=== PATIENT | female | born 1960 | race Caucasian/White ===

== ENCOUNTER 2016-07-03 11:06 | Emergency (ER) | payer MEDICARE, OTHER ==
[~2016-07-03] VITALS: Wt 46.0 kg
[~2016-07-03 11:06] MED LIST: ALBU8.5H3 INH; ARIP10TA13 PO; ASPI81TA3 PO; DIVA500T33 PO; DOCU-144 PO; ESOM20CA PO; FENT-23 TD; FLUT1DIS23; HYDR-762 PO; HYDR20TA PO; HYDR5TAB PO; LAMO150T PO; LOPE1LIQ69 PO; LORA-444 PO; ONDA4TAB8 PO; QUET200T PO; TOLT2CAP6 PO; ZOLP10TA
[2016-07-03] MEDS ORDERED: ONDANSETRON 4 MG INJ IV STA (11:48)
[2016-07-03] MEDS ORDERED: morphine 2 MG INJ IV STA (11:48)
[2016-07-03] MEDS ORDERED: SOD CHLORIDE 0.9% 1,000 ML IV STA (11:50)
[2016-07-03 11:52] LABS: ADD SCAN DIFF NO
[2016-07-03 12:12] LABS: ALBUMIN 3.7 g/dl (3.3-4.9); ALBUMIN/GLOBULIN RATIO 1.08; CALCIUM 9.1 mg/dl (8.4-10.2); CREATININE 0.52 mg/dl (0.44-1.00); POTASSIUM 4.6 mmol/L (3.5-5.1); TOTAL PROTEIN 7.1 g/dl (6.1-8.1)
[2016-07-03 12:14] LABS: BASOPHILS % 0.4 % (0.0-2.0); EOSINOPHILS # 0.1 10^3/ul (0.0-0.5); EOSINOPHILS % 1.7 % (0.0-7.0); LYMPHOCYTES # 0.9 10^3/ul (0.8-2.9); MEAN CORPUSCULAR HEMOGLOBIN 30.8 pg (29.0-33.0); MEAN CORPUSCULAR HGB CONC 32.4 g/dl (32.0-37.0); MEAN CORPUSCULAR VOLUME 94.9 fl (82.0-101.0); MEAN PLATELET VOLUME 9.4 fl (7.4-10.4); MONOCYTE # 0.3 10^3/ul (0.3-0.9); MONOCYTES % 5.2 % (0.0-11.0); NEUTROPHILS % 75.5 % (39.0-77.0); PLATELET COUNT 277 10^3/UL (140-415); RED CELL DISTRIBUTION WIDTH 12.5 % (11.5-14.5); WHITE BLOOD COUNT 5.4 10^3/ul (4.8-10.8)
[2016-07-03] MEDS ORDERED: SOD CHLORIDE 0.9% 100 ML ONE (12:25)
[2016-07-03] MEDS ORDERED: IOHEXOL 300MG/ML 30 ML BTL ONE (12:25)
--- NOTE | 2016-07-03 13:51 | RADRPT ---
PROCEDURE: CT Abdomen and Pelvis with contrast. CLINICAL INDICATION: Right lower quadrant abdominal pain. History of recent abdominal hernia repai r. TECHNIQUE: Multiple contiguous axial CT images of the abdomen and pelvis were obtained following t he administration of 80 cc of Omnipaque-300. Coronal and sagittal reconstructions were also perform ed. CTDIvol (mGy): 4.22; Total Exam DLP (mGy-cm): 212.99. One or more of the following dose reduction techniques were utilized: - Automated exposure control. - Adjustment of the mA and/or kV according to patient size. - Use of iterative reconstruction technique. COMPARISON: 04/17/2014. FINDINGS: Limited imaging of the lower thorax is unremarkable. The liver and spleen are homogeneous in enhancement. The gallbladder is surgically absent. Mild int rahepatic biliary duct dilatation is present and slightly increased. Common bile duct dilatation is also observed measuring 14 mm in greatest diameter, previously 10 mm. The pancreas and adrenal glan ds are unremarkable. There is no pancreatic duct dilatation. The kidneys are symmetric in size and enhancement. There is no hydronephrosis or abnormal perinephr ic inflammation. There are no ureteral stones. The abdominal aorta is normal in caliber. There is no periaortic / retroperitoneal lymphadenopathy. Bariatric surgical changes are present. The small intestines are unremarkable. There is no small b owel dilatation to suggest obstruction. A moderate large volume of stool and air are seen throughou t the colon.. The appendix is not visualized. There is no evidence of free intra-abdominal air flu id. The bladder is collapsed. The uterus is absent. The adnexa are unremarkable. There is no free pelv ic fluid. There is no pelvic sidewall or inguinal lymphadenopathy. There is a 11.3 x 3.1 x 9.0 cm rim enhancing fluid collection within the deep subcutaneous soft tiss ues of the mid upper abdomen. Surrounding subcutaneous edema is present. L4-S1 posterior spinal fusi on hardware is in place. IMPRESSION: Large fluid collection within the subcutaneous soft tissues of the mid upper abdominal wall. Given the recent history of abdominal hernia repair, a postoperative seroma is considered most likely. Co rrelate clinically with signs and symptoms of infection. Clinical follow-up advised. Moderate large volume of stool and air throughout the colon suggesting sequelae of constipation. Surgical changes compatible with cholecystectomy with increased biliary dilatation. Correlate clini donaldo with biliary enzymes and signs and symptoms of biliary colic. Follow-up may be obtained with [facility] if clinically indicated. RPTAT: HLST .Dasha Hickey MD, Date Time Electronically viewed and signed by .Dasha Hickey MD, on 07/03/2016 13:51 .T/
[2016-07-03] MEDS ORDERED: morphine 2 MG INJ IV ONE (14:00)
[2016-07-03 14:16] LABS: ADD UMIC NO; URINE BILIRUBIN (Dip) NEGATIVE (NEGATIVE); URINE BLOOD (Dip) NEGATIVE (NEGATIVE); URINE COLOR LT. YELLOW (YELLOW); URINE GLUCOSE (Dip) NEGATIVE (NEGATIVE); URINE KETONES (Dip) NEGATIVE (NEGATIVE); URINE LEUKOCYTE ESTERASE (Dip) NEGATIVE (NEGATIVE); URINE NITRITE (Dip) NEGATIVE (NEGATIVE); URINE TOTAL PROTEIN (Dip) NEGATIVE (NEGATIVE); URINE UROBILINOGEN (Dip) 0.2 E.U./dL (0.1-1.0)
[2016-07-03] MEDS ORDERED: MAGN400O4 PO (14:30)
[2016-07-03] MEDS ORDERED: POLY17PO6 PO (14:30)
[2016-07-03] MEDS ORDERED: ONDA4TAB14 PO (14:30)
[2016-07-03] MEDS ORDERED: [UNRECOGNIZED DRUG - CODE] PO (14:30)
--- NOTE | 2016-07-03 14:47 | ERD ---
ER Documentation Chief Complaint Date/Time DATE: 07/03/16 TIME: 14:42 Chief Complaint RIGHT GROIN PAIN, RECENT HERNIA REPAIR HPI 55-year-old female status post recent hernia repair in the beginning of June at [facility] presenting with right lower quadrant pain and nausea with vomiting. She states that for the past 3 days she has had some nonbloody and nonbilious vomiting. Today she started to have right lower quadrant cramping pain, constant, nonradiating, 9 out of 10. She has not had any associated fevers, chills, chest pain, cough, shortness of breath, dysuria, or hematuria. She does endorse constipation. She was supposed to follow-up with her surgeon on June 18 but did not. She plans on making an appointment next week. ROS All systems reviewed and are negative except as per history of present illness. Medications Home Meds Active Scripts Ondansetron (Ondansetron Odt) 4 Mg Tab.rapdis, 4 MG PO Q6H Y for NAUSEA AND/OR VOMITING, #10 TAB Prov:NARGIS LANDAVERDE MD 07/03/16 Simethicone (GAS RELIEF) 180 Mg Capsule, 180 MG PO Q4 Y for DISTENSION/GAS/ BLOATING, #30 CAP Prov:NARGIS LANDAVERDE MD 07/03/16 Polyethylene Glycol* (Miralax*) 17 Gm Powd.pack, 17 GM PO DAILY, #30 PACKET Prov:NARGIS LANDAVERDE MD 07/03/16 Magnesium Hydroxide* (Milk Of Magnesia*) 400 Mg/5 Ml Oral.susp, 30 ML PO BID Y for CONSTIPATION, #240 ML Prov:NARGIS LANDAVERDE MD 07/03/16 Hydrocodone Bit-Acetaminophen* ([place]*) 10-325 Mg Tablet, 1 TAB PO Q6 Y for PAIN , #14 TAB Prov:JON RIDER MD 09/23/14 Aspirin (Aspirin) 81 Mg Chew, 81 MG PO DAILY for 30 Days, TAB Prov:MARA FRY MD 03/29/14 Reported Medications Aripiprazole* (Abilify*) 10 Mg Tablet, 10 MG PO DAILY, TAB 04/26/14 Docusate Sodium* (Colace*) 100 Mg Capsule, 100 MG PO DAILY, CAP 04/15/14 Ondansetron Hcl* (Zofran*) 4 Mg Tablet, 4 MG PO Q6H Y for NAUSEA AND OR VOMITING , TAB 04/15/14 Esomeprazole Mag Trihydrate (Nexium) 20 Mg Capsule.dr, 20 MG PO DAILY, CAP 04/15/14 Loperamide Hcl* (Imodium*) 0.2 Mg/Ml Liq, 2 MG PO DAILY Y for DIARRHEA, ML MAX 16 mg/day 04/15/14 Fentanyl Patch* (Fentanyl Patch*) 75 Mcg/Hr Transdermal Patch, 1 PATCH TD Q72H, PATCH 04/15/14 Tolterodine Tartrate* (Detrol LA*) 2 Mg Cap.sr.24h, 2 MG PO DAILY, CAP 04/15/14 Albuterol Sulfate* (Proair HFA*) 8.5 Gm Hfa.aer.ad, 2 PUFF INH Q4H Y for WHEEZING AND SOB, INH 04/15/14 Lorazepam* (Ativan*) 2 Mg Tablet, 2 MG PO Q6 Y for ANXIETY, TAB 04/15/14 Lamotrigine* (Lamotrigine*) 150 Mg Tablet, 150 MG PO QHS, TAB 04/15/14 Hydrocortisone* (Cortef*) 5 Mg Tab, 10 MG PO HS, TAB 03/28/14 Hydrocortisone* (Cortef*) 20 Mg Tablet, 20 MG PO AM, TAB 03/28/14 Quetiapine Fumarate* (Seroquel*) 200 Mg Tablet, 800 MG PO DAILY 10/05/10 Divalproex Sodium (Depakote) 500 Mg Tablet.dr, 500 MG PO BID 10/05/10 Fluticasone/Salmeterol (Advair 250-50 Diskus) 1 Disk W/Dev Disk.w.dev 04/30/09 Zolpidem Tartrate* (Ambien*) 10 Mg Tablet 04/30/09 Allergies Allergies: Coded Allergies: Phenothiazines (Verified Allergy, Severe, 04/26/14) dystonia prochlorperazine (Verified Adverse Reaction, Severe, DYSTONIA, 04/26/14) codeine (Verified Adverse Reaction, Intermediate, VOMITING, 04/26/14) PMhx/Soc Medical and Surgical Hx: pt denies Medical Hx, pt denies Surgical Hx History of Surgery: Yes (L Knee replacement spinal surgery with infusing and ) Anesthesia Reaction: No Hx Neurological Disorder: Yes (L hand Tremers) Hx Respiratory Disorders: No (seasonal asthma) Hx Cardiac Disorders: Yes (pacemaker, CHF) Hx Psychiatric Problems: Yes (depression, bipolar) Hx Alcohol Use: No Hx Substance Use: No Hx Tobacco Use: No Smoking Status: Former smoker FmHx Family History: No diabetes Physical Exam Vitals Vital Signs Date Time Temp Pulse Resp B/P Pulse Ox O2 Delivery O2 Flow Rate FiO2 07/03/16 11:15 98.7 100 18 116/84 98 Physical Exam Const: Appears to be in mild distress, nontoxic. Thin body habitus Head: Atraumatic Eyes: Normal Conjunctiva ENT: Dry mucous membranes Neck: Full range of motion..~ No meningismus. Resp: Clear to auscultation bilaterally Cardio: Regular rate and rhythm, no murmurs Abd: There is ventral abdominal swelling that looks like a hernia but does not feel like a hernia. It is nontender to palpation and soft. There is no overlying erythema or induration. Right lower quadrant tender to palpation, non distended. No peritoneal signs. Normal bowel sounds Skin: No petechiae or rashes Back: No midline or flank tenderness Ext: No cyanosis, or edema Neur: Awake and alert Psych: Normal Mood and Affect Result Diagram: 07/03/16 1141 07/03/16 1141 Results 24 hrs Laboratory Tests Test 07/03/16 11:41 07/03/16 12:35 07/03/16 14:06 White Blood Count 5.410^3/ul Red Blood Count 3.9010^6/ul Hemoglobin 12.0g/dl Hematocrit 37.0% Mean Corpuscular Volume 94.9fl Mean Corpuscular Hemoglobin 30.8pg Mean Corpuscular Hemoglobin Concent 32.4g/dl Red Cell Distribution Width 12.5% Platelet Count 59849^3/UL Mean Platelet Volume 9.4fl Neutrophils % 75.5% Lymphocytes % 17.0% Monocytes % 5.2% Eosinophils % 1.7% Basophils % 0.4% Nucleated Red Blood Cells % 0.0/100WBC Neutrophils # 4.010^3/ul Lymphocytes # 0.910^3/ul Monocytes # 0.310^3/ul Eosinophils # 0.110^3/ul Basophils # 0.010^3/ul Nucleated Red Blood Cells # 0.010^3/ul Sodium Level 138mmol/L Potassium Level 4.6mmol/L Chloride Level 103mmol/L Carbon Dioxide Level 28mmol/L Anion Gap 12 Blood Urea Nitrogen 18mg/dl Creatinine 0.52mg/dl Glucose Level 139mg/dl Calcium Level 9.1mg/dl Total Bilirubin 0.0mg/dl Direct Bilirubin 0.00mg/dl Indirect Bilirubin 0.0mg/dl Aspartate Amino Transf (AST/SGOT) 21IU/L Alanine Aminotransferase (ALT/SGPT) 26IU/L Alkaline Phosphatase 97IU/L Total Protein 7.1g/dl Albumin 3.7g/dl Globulin 3.40g/dl Albumin/Globulin Ratio 1.08 Lactic Acid Level 1.0mmol/L Urine Color LT. YELLOW Urine Clarity CLEAR Urine pH 7.0 Urine Specific [place] <=1.005 Urine Ketones NEGATIVE Urine Nitrite NEGATIVE Urine Bilirubin NEGATIVE Urine Urobilinogen 0.2 E.U./dL Urine Leukocyte Esterase NEGATIVE Urine Hemoglobin NEGATIVE Urine Glucose NEGATIVE% Urine Total Protein NEGATIVE Current Medications Medications (Trade) Dose Ordered Sig/Blas Route PRN Reason Start Time Stop Time Status Last Admin Dose Admin Morphine Sulfate (morphine) 2 mg ONCE STAT IV 07/03/16 11:48 07/03/16 11:50 DC 07/03/16 12:14 Ondansetron HCl 4 mg 4 mg ONCE STAT IV 07/03/16 11:48 07/03/16 11:50 DC 07/03/16 12:15 Sodium Chloride 1,000 ml @ 1,000 mls/hr Q1H STAT IV 07/03/16 11:50 07/03/16 12:49 DC 07/03/16 12:15 Sodium Chloride (NS) 100 ml @ ud STK-MED ONCE .ROUTE 07/03/16 12:25 07/03/16 12:26 DC 07/03/16 13:17 Iohexol (Omnipaque 300mg/ ml) 30 ml STK-MED ONCE .ROUTE 07/03/16 12:25 07/03/16 12:26 DC 07/03/16 13:16 Morphine Sulfate (morphine) 2 mg ONCE ONCE IV 07/03/16 14:00 07/03/16 14:01 DC 07/03/16 13:48 Procedures/MDM EMERGENT LABS AND DIAGNOSTIC STUDIES: Lab Results above were reviewed and interpreted by me. Labs show no acute abnormalities Radiology Results as interpreted by Radiology below were reviewed by Jonny Landaverde MD: CT abdomen and pelvis with IV contrast: IMPRESSION: Large fluid collection within the subcutaneous soft tissues of the mid upper abdominal wall. Given the recent history of abdominal hernia repair, a postoperative seroma is considered most likely. Correlate clinically with signs and symptoms of infection. Clinical follow-up advised. Moderate large volume of stool and air throughout the colon suggesting sequelae of constipation. Surgical changes compatible with cholecystectomy with increased biliary dilatation. Correlate clinically with biliary enzymes and signs and symptoms of biliary colic. Follow-up may be obtained with MRCP if clinically indicated. RPTAT: HLST .Dasha Hickey MD, MD Date Time Electronically viewed and signed by .Dasha Hickey MD, on 07/03/2016 13:51 Initial Nursing notes reviewed. Previous Medical Records requested via the Electronic Health Record. EMERGENCY DEPARTMENT COURSE / MEDICAL DECISION MAKING: Patient is presenting with severe right lower quadrant abdominal pain with nausea and vomiting. Differential includes but is not limited to appendicitis, colitis, cystitis, ureterolithiasis, diverticulitis, abdominal aortic dissection , bowel obstruction, fecal impaction. I have a lower suspicion for a pelvic etiology. Bloodwork and UA were done and were normal. CT abdomen and pelvis showed a postoperative seroma without any evidence of infection. She does not have appendicitis. She did have a moderate amount of stool in her right colon. I discussed the results with the patient. She was given IV fluids, antiemetics, and analgesics with significant improvement. She was eating a sandwich when I reexamined her. She feels comfortable going home at this time. I will discharge her with medications for nausea and for constipation. She plans on making an appointment with her surgeon in the next few days for reexamination. I gave her a report of her CT and told her to discuss the seroma with her surgeon. Return precautions were given. She was discharged in a stable condition. Departure Diagnosis: Primary Impression: Nausea and vomiting Vomiting type: unspecified Vomiting Intractability: non-intractable Qualified Code: R11.2 - Non-intractable vomiting with nausea, unspecified vomiting type Additional Impressions: Seroma, postoperative Surgical complication system/body Area: digestive system Procedure type: non -digestive system Qualified Code: K91.873 - Postoperative seroma involving digestive system after non-digestive system procedure Abdominal pain Abdominal location: right lower quadrant Qualified Code: R10.31 - Right lower quadrant abdominal pain Constipation Constipation type: unspecified constipation type Qualified Code: K59.00 - Constipation, unspecified constipation type Condition: Stable Patient Instructions: Nausea and Vomiting-Adult, Constipation (Adult) Additional Instructions: Make an appointment with your surgeon as soon as possible. You have a postoperative fluid collection that is not an infection. This can be drained but it does not have to be done emergently. Return to the ER for any worsening symptoms. NARGIS LANDAVERDE MD July 03, 2016 14:47
== END 2016-07-03 14:50 | disposition home or self-care (01) ==
LOC: E/R 11:06
DX: R11.2 Nausea with vomiting, unspecified (principal); K91.873 Postprocedural seroma of a digestive system organ or structure following other procedure; K59.00 Constipation, unspecified; I50.9 Heart failure, unspecified; R40.2142 Coma scale, eyes open, spontaneous, at arrival to emergency department; R40.2252 Coma scale, best verbal response, oriented, at arrival to emergency department; R40.2362 Coma scale, best motor response, obeys commands, at arrival to emergency department; Z87.891 Personal history of nicotine dependence; Z95.0 Presence of cardiac pacemaker; Z96.652 Presence of left artificial knee joint; Z79.82 Long term (current) use of aspirin
CPT/HCPCS: 74177; 80053; 81003; 83605; 85025; J2270; J2405; J7030; Q9967; 36415; 96374; 96375; 96376

== ENCOUNTER 2016-10-09 21:00 | Emergency (ER) | payer MEDICARE, OTHER ==
[~2016-10-09] VITALS: Ht 162.6 cm; Wt 44.0 kg
[~2016-10-09 21:00] MED LIST changes: +MAGN400O4 PO; +ONDA4TAB14 PO; +POLY17PO6 PO; +[UNRECOGNIZED DRUG - CODE] PO
[2016-10-09 21:10] VITALS: Ht 162.6 cm; Wt 44.0 kg
--- NOTE | 2016-10-10 00:11 | ERA ---
ER Documentation Chief Complaint Date/Time DATE: 10/10/16 TIME: 00:10 Chief Complaint bib ambulance, nausea, vomiting, diarrhea HPI The patient is a 55-year-old female, presenting to the ER because of vomiting and diarrhea for 1 week after she ran out of her Dilaudid. She normally takes Dilaudid 4 mg IV 4-6 hours for years. He denies hematemesis or hematochezia, denies fever, chills, syncope, near syncope, neck pain, chest pain. She complains of minimal vague diffuse abdominal discomfort from the vomiting and diarrhea. She does not smoke nor drink Past medical history: Chronic pain syndrome, asthma, CAD, depression, bipolar Past surgical history: Left knee, Port-A-Cath, history of gastric bypass, ventral herniorrhaphy, left shoulder ROS All systems reviewed and are negative except as per history of present illness. Medications Home Meds Active Scripts Loperamide Hcl* (Imodium*) 2 Mg Capsule, 2 MG PO .AFTER EA LOOSE BM Y for DIARRHEA, #10 TAB Prov:ENRIQUETA PHILLIPS MD 10/10/16 Ondansetron (Ondansetron Odt) 4 Mg Tab.rapdis, 4 MG PO Q6H Y for NAUSEA AND/OR VOMITING, #10 TAB Prov:ENRIQUETA PHILLIPS MD 10/10/16 Ciprofloxacin Hcl* (Ciprofloxacin Hcl*) 500 Mg Tablet, 500 MG PO BID for 7 Days , TAB Prov:ENRIQUETA PHILLIPS MD 10/10/16 Ondansetron (Ondansetron Odt) 4 Mg Tab.rapdis, 4 MG PO Q6H Y for NAUSEA AND/OR VOMITING, #10 TAB Prov:NARGIS MANNING MD 07/03/16 Simethicone (GAS RELIEF) 180 Mg Capsule, 180 MG PO Q4 Y for DISTENSION/GAS/ BLOATING, #30 CAP Prov:NARGIS MANNING MD 07/03/16 Polyethylene Glycol* (Miralax*) 17 Gm Powd.pack, 17 GM PO DAILY, #30 PACKET Prov:NARGIS MANNING MD 07/03/16 Magnesium Hydroxide* (Milk Of Magnesia*) 400 Mg/5 Ml Oral.susp, 30 ML PO BID Y for CONSTIPATION, #240 ML Prov:NARGIS MANNING MD 07/03/16 Hydrocodone Bit-Acetaminophen* ([place]*) 10-325 Mg Tablet, 1 TAB PO Q6 Y for PAIN , #14 TAB Prov:JON RIDER MD 09/23/14 Aspirin (Aspirin) 81 Mg Chew, 81 MG PO DAILY for 30 Days, TAB Prov:MARA FRY MD 03/29/14 Reported Medications Aripiprazole* (Abilify*) 10 Mg Tablet, 10 MG PO DAILY, TAB 04/26/14 Docusate Sodium* (Colace*) 100 Mg Capsule, 100 MG PO DAILY, CAP 04/15/14 Ondansetron Hcl* (Zofran*) 4 Mg Tablet, 4 MG PO Q6H Y for NAUSEA AND OR VOMITING , TAB 04/15/14 Esomeprazole Mag Trihydrate (Nexium) 20 Mg Capsule.dr, 20 MG PO DAILY, CAP 04/15/14 Loperamide Hcl* (Imodium*) 0.2 Mg/Ml Liq, 2 MG PO DAILY Y for DIARRHEA, ML MAX 16 mg/day 04/15/14 Tolterodine Tartrate* (Detrol LA*) 2 Mg Cap.sr.24h, 2 MG PO DAILY, CAP 04/15/14 Albuterol Sulfate* (Proair HFA*) 8.5 Gm Hfa.aer.ad, 2 PUFF INH Q4H Y for WHEEZING AND SOB, INH 04/15/14 Lorazepam* (Ativan*) 2 Mg Tablet, 2 MG PO Q6 Y for ANXIETY, TAB 04/15/14 Lamotrigine* (Lamotrigine*) 150 Mg Tablet, 150 MG PO QHS, TAB 04/15/14 Hydrocortisone* (Cortef*) 5 Mg Tab, 10 MG PO HS, TAB 03/28/14 Hydrocortisone* (Cortef*) 20 Mg Tablet, 20 MG PO AM, TAB 03/28/14 Quetiapine Fumarate* (Seroquel*) 200 Mg Tablet, 800 MG PO DAILY 10/05/10 Fluticasone/Salmeterol (Advair 250-50 Diskus) 1 Disk W/Dev Disk.w.dev 04/30/09 Zolpidem Tartrate* (Ambien*) 10 Mg Tablet 04/30/09 Discontinued Reported Medications Fentanyl Patch* (Fentanyl Patch*) 75 Mcg/Hr Transdermal Patch, 1 PATCH TD Q72H, PATCH 04/15/14 Divalproex Sodium (Depakote) 500 Mg Tablet.dr, 500 MG PO BID 10/05/10 Allergies Allergies: Coded Allergies: Phenothiazines (Unverified Allergy, Severe, 10/10/16) dystonia prochlorperazine (Unverified Adverse Reaction, Severe, DYSTONIA, 10/10/16) codeine (Unverified Adverse Reaction, Intermediate, VOMITING, 10/10/16) PMhx/Soc History of Surgery: Yes (L Knee replacement spinal surgery with infusing and ) Anesthesia Reaction: No Hx Neurological Disorder: Yes (L hand Tremers) Hx Respiratory Disorders: No (seasonal asthma) Hx Cardiac Disorders: Yes (pacemaker, CHF) Hx Psychiatric Problems: Yes (depression, bipolar) Hx Alcohol Use: No Hx Substance Use: No Hx Tobacco Use: No Physical Exam Vitals Vital Signs Date Time Temp Pulse Resp B/P Pulse Ox O2 Delivery O2 Flow Rate FiO2 10/10/16 03:22 98.7 86 20 105/72 95 Room Air 10/10/16 00:00 98.7 98 20 103/81 100 Room Air 10/09/16 21:10 98.7 120 20 129/99 98 Physical Exam Const: No acute distress. Head: Atraumatic. Eyes: Normal Conjunctiva. ENT: Normal External Ears, Nose and Mouth. Neck: Full range of motion. No meningismus. Resp: Clear to auscultation bilaterally. Cardio: Regular Tachycardic Abd: Soft, non distended, normal bowel sounds, non tender. Skin: No petechiae or rashes. Back: No midline or flank tenderness. Ext: No cyanosis, or edema. Neur: Awake and alert. No focal deficit Psych: Normal Mood and Affect. Result Diagram: 10/10/16 0037 10/10/16 0037 Results 24 hrs Laboratory Tests Test 10/10/16 00:37 10/10/16 00:49 White Blood Count 5.110^3/ul Red Blood Count 3.5710^6/ul Hemoglobin 11.1g/dl Hematocrit 33.2% Mean Corpuscular Volume 93.0fl Mean Corpuscular Hemoglobin 31.1pg Mean Corpuscular Hemoglobin Concent 33.4g/dl Red Cell Distribution Width 13.2% Platelet Count 46658^3/UL Mean Platelet Volume 9.4fl Neutrophils % 57.5% Lymphocytes % 28.3% Monocytes % 9.7% Eosinophils % 3.7% Basophils % 0.4% Nucleated Red Blood Cells % 0.0/100WBC Neutrophils # (Manual) 3.010^3/ul Lymphocytes # 1.510^3/ul Monocytes # 0.510^3/ul Eosinophils # 0.210^3/ul Basophils # 0.010^3/ul Nucleated Red Blood Cells # 0.010^3/ul Sodium Level 140mmol/L Potassium Level 3.3mmol/L Chloride Level 107mmol/L Carbon Dioxide Level 26mmol/L Anion Gap 10 Blood Urea Nitrogen 20mg/dl Creatinine 0.49mg/dl Glucose Level 90mg/dl Calcium Level 8.3mg/dl Magnesium Level 2.0mg/dl Total Bilirubin 0.0mg/dl Direct Bilirubin 0.00mg/dl Indirect Bilirubin 0.0mg/dl Aspartate Amino Transf (AST/SGOT) 15IU/L Alanine Aminotransferase (ALT/SGPT) 25IU/L Alkaline Phosphatase 79IU/L Total Protein 5.9g/dl Albumin 3.1g/dl Globulin 2.80g/dl Albumin/Globulin Ratio 1.10 Lipase 243U/L Bedside Urine pH (LAB) 5.5 Bedside Urine Protein (LAB) Negative Bedside Urine Glucose (UA) Negative Bedside Urine Ketones (LAB) Negative Bedside Urine Blood Trace-intact Bedside Urine Nitrite (LAB) Negative Bedside Urine Leukocyte Esterase (L 1+ Current Medications Medications (Trade) Dose Ordered Sig/Blas Route PRN Reason Start Time Stop Time Status Last Admin Dose Admin Sodium Chloride (NS) 1,000 ml @ 1,000 mls/hr Q1H ONCE IV 10/10/16 00:30 10/10/16 01:29 DC 10/10/16 00:49 Ondansetron HCl (Zofran Inj) 4 mg ONCE STAT IV 10/10/16 00:15 10/10/16 00:17 DC 10/10/16 00:50 Hydromorphone HCl (Dilaudid) 1 mg ONCE STAT IV 10/10/16 00:38 10/10/16 00:40 DC 10/10/16 00:50 Hydromorphone HCl (Dilaudid) 1 mg ONCE ONCE IV 10/10/16 01:15 9/2/17 01:16 DC 10/10/16 01:21 Ondansetron HCl (Zofran Inj) 4 mg ONCE ONCE IV 10/10/16 01:15 10/10/16 01:16 DC 10/10/16 01:21 Potassium Chloride (Klor-Con 20) 40 meq ONCE ONCE PO 10/10/16 02:05 10/10/16 02:06 DC 10/10/16 02:50 Procedures/MDM MEDICAL MAKING DECISION: The patient is a 55-year-old female, presenting with acute alcohol withdrawal, acute dehydration, acute cystitis, acute hypokalemia. She was treated with 1 L normal saline for acute dehydration, Dilaudid 1 mg IV 2 and Zofran 4 mg IV 2 for her opioid withdrawal, potassium chloride 40 mEq p.o. for acute hypokalemia with good response. The differential diagnoses considered include but are not limited to cholelithiasis, cholecystitis, cystitis, pancreatitis, hepatitis, gastritis, peptic ulcer disease, gastric ulcer, appendicitis, diverticulitis, cholangitis, choledocholithiasis, partial small bowel obstruction. Departure Diagnosis: Primary Impression: Opioid withdrawal Additional Impressions: UTI (urinary tract infection) Hypokalemia Anemia Condition: Good Comments She was discharged with Cipro, Imodium, Zofran I discussed the findings with the patient. I advised the patient to follow-up with pain management physician in about 1-2 days, sooner if needed and return if any concern. The patient's blood pressure was elevated (>120/80) but appears stable without evidence of hypertension emergency or urgency. The patient was counseled about the risks of hypertension and urged to pursue outpatient monitoring and therapy within a week with their primary care physician. ENRIQUETA PHILLIPS MD Oct 10, 2016 00:11
[2016-10-10] MEDS ORDERED: ONDANSETRON 4 MG INJ IV STA (00:15)
[2016-10-10] MEDS ORDERED: SOD CHLORIDE 0.9% 1,000 ML IV ONE (00:30)
[2016-10-10] MEDS ORDERED: HYDROmorphONE 1 MG/ML SYG IV STA (00:38)
[2016-10-10 00:43] LABS: URINE BLOOD (Dip) POC Trace-intact (NEGATIVE)
[2016-10-10 00:52] LABS: BASOPHILS % 0.4 % (0.0-2.0); EOSINOPHILS # 0.2 10^3/ul (0.0-0.5); EOSINOPHILS % 3.7 % (0.0-7.0); HEMATOCRIT 33.2 % (37.0-47.0); HEMOGLOBIN 11.1 g/dl (12.0-16.0); LYMPHOCYTES # 1.5 10^3/ul (0.8-2.9); LYMPHOCYTES % 28.3 % (15.0-51.0); MEAN CORPUSCULAR HEMOGLOBIN 31.1 pg (29.0-33.0); MEAN CORPUSCULAR HGB CONC 33.4 g/dl (32.0-37.0); MEAN PLATELET VOLUME 9.4 fl (7.4-10.4); MONOCYTE # 0.5 10^3/ul (0.3-0.9); MONOCYTES % 9.7 % (0.0-11.0); NEUTROPHILS % 57.5 % (39.0-77.0); PLATELET COUNT 217 10^3/UL (140-415); RED BLOOD COUNT 3.57 10^6/ul (4.20-5.40); RED CELL DISTRIBUTION WIDTH 13.2 % (11.5-14.5); WHITE BLOOD COUNT 5.1 10^3/ul (4.8-10.8)
[2016-10-10 01:09] LABS: ALBUMIN 3.1 g/dl (3.3-4.9); ALBUMIN/GLOBULIN RATIO 1.1; CALCIUM 8.3 mg/dl (8.4-10.2); CREATININE 0.49 mg/dl (0.44-1.00); POTASSIUM 3.3 mmol/L (3.5-5.1); TOTAL PROTEIN 5.9 g/dl (6.1-8.1)
[2016-10-10] MEDS ORDERED: ONDANSETRON 4 MG INJ IV ONE (01:15)
[2016-10-10] MEDS ORDERED: HYDROmorphONE 1 MG/ML SYG IV ONE (01:15)
[2016-10-10] MEDS ORDERED: POTASSIUM CHLORIDE (SR) 20 MEQ TAB PO ONE (02:05)
[2016-10-10] MEDS ORDERED: CIPR500T4 PO (03:02)
[2016-10-10] MEDS ORDERED: ONDA4TAB14 PO (03:02)
[2016-10-10] MEDS ORDERED: LOPE2CAP PO (03:03)
[2016-10-10 03:22] VITALS: BP 105/72; PULSE 86; RESP 20; TEMP 98.7
== END 2016-10-10 03:25 | disposition home or self-care (01) ==
LOC: E/R 21:00
DX: F11.23 Opioid dependence with withdrawal (principal); N39.0 Urinary tract infection, site not specified; E87.6 Hypokalemia; D64.9 Anemia, unspecified; I50.9 Heart failure, unspecified; J45.909 Unspecified asthma, uncomplicated; I25.10 Atherosclerotic heart disease of native coronary artery without angina pectoris; Z95.0 Presence of cardiac pacemaker; Z79.82 Long term (current) use of aspirin
CPT/HCPCS: 36415; 80053; 81003; 83690; 83735; 85025; 96374; 96375; 96376; 99284; J1170; J2405; J7030

== ENCOUNTER 2016-12-29 19:15 | Emergency (ER) | payer MEDICARE, OTHER ==
[~2016-12-29] VITALS: Ht 160 cm; Wt 44.9 kg
[~2016-12-29 19:15] MED LIST changes: +CIPR500T4 PO; -DIVA500T33 PO; -FENT-23 TD; +LOPE2CAP PO
[2016-12-29 19:32] VITALS: Ht 160 cm; Wt 44.9 kg
== END 2016-12-29 20:56 | disposition left against medical advice (07) ==
LOC: E/R 19:15
DX: Z53.21 Procedure and treatment not carried out due to patient leaving prior to being seen by health care provider (principal)